=== PATIENT | male | born 1975 | race African-American/Black ===

== ENCOUNTER 2016-11-10 23:30 | Emergency (ER) | payer OTHER ==
[~2016-11-10] VITALS: Ht 170.2 cm; Wt 72.6 kg
[2016-11-11 00:18] VITALS: BP 132/71
[2016-11-11] MEDS ORDERED: CIPRO250 M1 PO (00:24)
--- NOTE | 2016-11-11 01:03 | ED UPPER/LOWER EXTREMITY COMPL ---
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 PATIENT ABLE TO BEND FINGER W/O DIFFICULTY. Triage Nurses Notes Reviewed? yes Onset: Abrupt Duration: constant Timing: single episode today Severity: moderate Severity Numbers: 5 HPI: Patient is a 41-year-old male who presents emergency room saying that today while barbecuing he accidentally cut the left third digit of his finger with a knife and which bleeding was controlled prior to arrival. Patient has left arm dominant. Tetanus is up-to-date. No medications given prior to arrival. (SEAN WHITNEY) Past History Travel History Traveled to [place] past 21 day No Medical History Any Pertinent Medical History? 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 No (SEAN WHITNEY) Review of Systems Review of Systems Constitutional: Reports: no symptoms. EENTM: Reports: no symptoms. Respiratory: Reports: no symptoms. Cardiovascular: Reports: no symptoms. Gastrointestinal/Abdominal: Reports: no symptoms. Genitourinary: Reports: no symptoms. Musculoskeletal: Reports: see HPI, joint pain. Skin: Reports: see HPI. Neurological/Psychological: Reports: no symptoms. Hematologic/Endocrine: Reports: see HPI, bleeding. Immunological: Reports: no symptoms. All Other Systems: Reviewed and Negative (SEAN WHITNEY) Physical Exam Physical Exam General Appearance: no apparent distress, alert, comfortable Neurologic/Tendon: normal sensation, normal motor functions, normal tendon functions, responds to pain, no evidence tendon injury, no pulse deficit Skin: normal color, warm/dry Comments: Well-developed well-nourished no apparent distress. HEENT: Atraumatic, extraocular motion intact Neck: Supple, no lymphadenopathy Back: Nontender Respiratory: No respiratory distress Neuro: Alert and oriented x3 Psych: Mood affect normal, normal memory normal judgment. Diagram Hands Front 1) Noted subcutaneous gaping 3 cm irregular laceration FULL active range of motion with flexion and extension full resisted range of motion noted with flexion and extension no tendon deficit no exposed bone no exposed tendon (SEAN WHITNEY) Progress Differential Diagnosis: arterial insufficiency, compartment syndrome, contusion, dislocation, DVT, fracture, gout, septic arthritis, sprain, tendon injury Plan of Care: Patient on initial examination has no concerns of tendon deficit. Discuss handoff with DR. ESTEVES FOR SUTURE REPAIR Hand-Off Endorsed To: RADHA ESTEVES MD Endorsed Time: 101 Pending: other (SUTURE REPAIR) (SEAN WHITNEY) Departure Departure Disposition: HOME OR SELF CARE Condition: Stable Clinical Impression Primary Impression: Laceration of left middle finger Referrals: PATIENT HAS NO PRIMARY CARE DR (PCP/Family) Departure Forms: Customer Survey General Discharge Information (SEAN WHITNEY) Departure Time of Disposition: 211 Additional Instructions: As discussed BEGIN to apply bacitracin with bandage for the following 4 days to prevent infection., Then after leave wound open to improve healing. If you note signs of infection redness, pain, swelling, discharge return to emergency room. Return to emergency room in 10-14 days for suture removal. Begin over- the-counter ibuprofen for pain and inflammation. Prescriptions: Current Visit Scripts Ibuprofen 1 TAB PO Q6PRN PRN pain #50 TAB with food (RADHA ESTEVES MD) Procedures Laceration/Wound Repair Laceration/Wound Repair: Wound Location: upper extremity (LMF) Wound's Depth, Shape: irregular Wound Length (cm): 5 Wound Explored: no foreign body removed Irrigated w/ Saline (ccs): 500 Betadine Prep? Yes Anesthesia: 1% lidocaine Volume Anesthetic (ccs): 6 Wound Repaired With: sutures Suture Size/Type: 5:0, nylon Number of Sutures: 14 Layer Closure? No Sterile Dressing Applied: Yes Splint Applied? Yes By Who? by nurse Type of Splint Applied: finger Tetanus Status: up to date (RADHA ESTEVES MD)
[2016-11-11] MEDS ORDERED: IBUPROFEN600 M1 PO (02:12)
== END 2016-11-11 02:39 ==
LOC: ERH 23:30
DX: S61.213A Laceration without foreign body of left middle finger without damage to nail, initial encounter (principal); W26.0XXA Contact with knife, initial encounter; Y93.G1 Activity, food preparation and clean up

== ENCOUNTER 2016-11-24 17:22 | Emergency (ER) | payer OTHER ==
[~2016-11-24 17:22] MED LIST: CIPRO250 M1 PO; IBUPROFEN600 M1 PO
[2016-11-24 17:32] VITALS: BP 131/88
--- NOTE | 2016-11-24 17:37 | ED ANIMAL BITE/WOUND CHECK ---
History of Present Illness General Chief Complaint: Suture Removal/Wound Recheck Stated Complaint: SUTURE REMOVAL Source: patient, old records Exam Limitations: no limitations Vital Signs & Intake/Output Vital Signs & Intake/Output Vital Signs Date Time Temp Pulse Resp B/P B/P Pulse O2 O2 Flow FiO2 Mean Ox Delivery Rate 11/24 1732 98.3 64 20 131/88 98 Allergies Coded Allergies: No Known Allergies (11/11/16) Reconcile Medications Ciprofloxacin HCl (Cipro) 250 MG TABLET 1 TAB PO BID ABX (Reported) Ibuprofen 600 MG TABLET 1 TAB PO Q6PRN PRN pain with food Triage Note: PER PT L HAND SUTURES PLACED 2 WEEKS AGO NO DISTRESS. NO DRAINAGE. L 4TH DIGIT SUTURE LINE D/I Triage Nurses Notes Reviewed? yes HPI: Patient presents for suture removal from his finger. Patient has no complaints. There is no fevers chills. There is no pus drainage. Past History Travel History Traveled to [place] past 21 day No Medical History Any Pertinent Medical History? 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 No Review of Systems Review of Systems Constitutional: Reports: no symptoms. Respiratory: Reports: no symptoms. Cardiovascular: Reports: no symptoms. Skin: Reports: no symptoms. Immunologic/Allergic: Reports: no symptoms. Physical Exam Physical Exam General Appearance: well developed/nourished, alert, awake Eyes: Bilateral: PERRL, EOMI. Respiratory: normal breath sounds, chest non-tender, no respiratory distress, lungs clear Cardiovascular: regular rate/rhythm, normal peripheral pulses Extremities: NO SIGNS OF INFECTION, SUTURES NOT READY FOR REMOVAL Neurologic/Psych: no motor/sensory deficits, awake, alert, oriented x 3, normal mood/affect Progress Differential Diagnosis: WOUND CHECK Plan of Care: RETURN IN 5 DAYS FOR SUTURE REMOVAL Departure Departure Disposition: HOME OR SELF CARE Condition: Stable Clinical Impression Primary Impression: Visit for wound check Referrals: PATIENT HAS NO PRIMARY CARE DR (PCP/Family) Additional Instructions: RETURN IN 5 MORE DAYS OR SOONER IF NEEDED Departure Forms: Customer Survey General Discharge Information
== END 2016-11-24 17:42 ==
LOC: ERH 17:22
DX: S61.215A Laceration without foreign body of left ring finger without damage to nail, initial encounter (principal); X58.XXXA Exposure to other specified factors, initial encounter; Y92.9 Unspecified place or not applicable; Y93.9 Activity, unspecified
CPT/HCPCS: 99281

== ENCOUNTER 2016-11-29 18:54 | Emergency (ER) | payer OTHER ==
[~2016-11-29] VITALS: Ht 170.2 cm; Wt 72.6 kg
[2016-11-29 19:09] VITALS: BP 107/70
--- NOTE | 2016-11-29 19:09 | ED ANIMAL BITE/WOUND CHECK ---
History of Present Illness General Chief Complaint: Suture Removal/Wound Recheck Stated Complaint: SUTURE REMOVAL Source: patient, old records Exam Limitations: no limitations Vital Signs & Intake/Output Vital Signs & Intake/Output Vital Signs Date Time Temp Pulse Resp B/P B/P Pulse O2 O2 Flow FiO2 Mean Ox Delivery Rate 11/29 1909 98.2 54 16 107/70 97 Room Air Allergies Coded Allergies: No Known Allergies (11/11/16) Reconcile Medications Ciprofloxacin HCl (Cipro) 250 MG TABLET 1 TAB PO BID ABX (Reported) Ibuprofen 600 MG TABLET 1 TAB PO Q6PRN PRN pain with food Triage Note: PT HERE FOR SUTURE REMOVAL LEFT MIDDLE FINGER PLACED THE BEGINING OF THE MONTH. Triage Nurses Notes Reviewed? yes Onset: Abrupt Duration: week(s): (2), better Timing: remote history Injury Environment: home Is Injury an Animal Bite? No Severity: mild Severity Numbers: 1 No Modifying Factors: none Associated Symptoms: denies HPI: 41-year-old male presents to ER for evaluation for suture removal status post requiring 14 sutures to his finger 2 weeks ago. He is otherwise without any complaints no discharge redness no difficulty with movement of his finger. No fever no chills he is otherwise without any complaints at this time. (SEAN MORRIS) Past History Travel History Traveled to [place] past 21 day No Medical History Any Pertinent Medical History? 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 No (SEAN MORRIS) Review of Systems Review of Systems Constitutional: Reports: see HPI. All Other Systems: Reviewed and Negative Comments Review of systems: See HPI, All other systems negative. Constitutional, no chills no fever, no malaise HEENT: no sore throat no congestion, Cardiovascular: No chest pain , no palpitation , Skin: no rashes, no change in skin Respiratory: No dyspnea no cough no sputum GI: No nausea no vomiting, Muscle skeletal: No joint pain, no joint swelling, no back pain, no neck pain, Neurologic: No numbness no headache Psych: No stress . Heme/endocrine: No bruising Immunology: No lymphadenopathy (SEAN MORRIS) Physical Exam Physical Exam General Appearance: well developed/nourished, no apparent distress, alert, awake Comments: Well-developed well-nourished patient in no apparent distress. HEENT: Atraumatic, extraocular motion intact Neck: Supple, FROM Back: FROM Cardiovascular: Regular rate and rhythms no murmurs Respiratory: No respiratory distress. Patient speaking in full complete sentences Extremities: Sutures 14 and placed to the medial aspect of the left third finger, no surrounding induration fluctuance or erythema full range of motion Neuro: awake, alert, and oriented to person, place and time. There were no obvious focal neurologic abnormalities. Skin: Warm & dry;No appreciable rash on exposed skin Psych: Mood affect normal, normal memory normal judgment. (SEAN MORRIS) Progress Differential Diagnosis: cellulitis, joint infection, tenosysnovitis Plan of Care: Sutures 14 removed by me there is no wound dehiscence. Patient tolerated procedure well answered all their questions A for comfortable plan (SEAN MORRIS) Departure Departure Time of Disposition: 1915 Disposition: HOME OR SELF CARE Condition: Stable Clinical Impression Primary Impression: Visit for suture removal Referrals: PATIENT HAS NO PRIMARY CARE DR (PCP/Family) Additional Instructions: FOLLOW UP WITH YOUR PMD, RETURN TO THE ER WITH ANY CONCERNS OR SIGNS OF INFECTION Departure Forms: Customer Survey General Discharge Information (SEAN MORRIS) PA/RETAIL EVENT AND SALES ASSISTANT Co-Sign Statement Statement: ED Attending supervision documentation- [] I saw and evaluated the patient. I have also reviewed all the pertinent lab results and diagnostic results. I agree with the findings and the plan of care as documented in the PA's/RETAIL EVENT AND SALES ASSISTANT's documentation. [X] I have reviewed the ED Record and agree with the PA's/RETAIL EVENT AND SALES ASSISTANT's documentation. [] Additions or exceptions (if any) to the PAs/RETAIL EVENT AND SALES ASSISTANT's note and plan are summarized below: [] (KADEN REY,AMBER Upton)
== END 2016-11-29 19:11 ==
LOC: ERH 18:54
DX: S61.213D Laceration without foreign body of left middle finger without damage to nail, subsequent encounter (principal)
CPT/HCPCS: 99281